=== PATIENT | female | born 1950 | race Caucasian/White ===

== ENCOUNTER 2017-03-06 15:06 | Inpatient (IN) | payer MEDICARE ==
[2017-03-06] MEDS ORDERED: Polyethylene Glycol 3350* 17 GM PACKET PO PRN (15:54)
[2017-03-06] MEDS ORDERED: Temazepam CAP* 15 MG PO PRN (15:57)
[2017-03-06] MEDS ORDERED: NS 0.9% 1000 ML* 1,000 ML IV SCH (16:00)
[2017-03-06] MEDS ORDERED: Zosyn per Pharmacy* NOTE FOLLOW UP SCH (16:00)
[2017-03-06] MEDS: Enoxaparin(*) 40 MG/0.4 ML SYR SUBCUT SCH (17:50)
[2017-03-06] MEDS: HYDROmorphone TAB* 2 MG PO PRN ×2 (18:52→23:25)
[2017-03-06] MEDS: Ondansetron INJ* 2 MG/ML VIAL IV PRN ×2 (19:10→23:26)
[2017-03-06] MEDS: ZOSYN 3.375 GM Q8H per EXTENDED INFUSION IVPB SCH ×2 (21:38)
[2017-03-07] MEDS: ZOSYN 3.375 GM Q8H per EXTENDED INFUSION IVPB SCH ×6 (04:57→21:06)
[2017-03-07] MEDS: Levothyroxine TAB* 88 MCG TAB PO SCH (05:00)
[2017-03-07 05:27] LABS: Hematocrit 22 % (35-47); Hemoglobin 7.8 g/dl (12.0-16.0); Mean Corpuscular HGB Conc 35 g/dl (31-36); Mean Corpuscular Hemoglobin 33 pg (27-31); Mean Corpuscular Volume 94 fL (80-97); Mean Platelet Volume 9 um3 (7.4-10.4); Red Blood Count 2.37 10^6/ul (4.0-5.4); Red Cell Distribution Width 18 % (10.5-15); White Blood Count 4.9 10^3/ul (3.5-10.8)
[2017-03-07 05:34] LABS: Albumin 2.6 g/dL (3.2-5.2); BUN/Creatinine Ratio 12.5 (8-20); Calcium 7.3 mg/dL (8.6-10.3); EGFR African American 165.9 (>60); Globulin 2.7 g/dL (2-4); Potassium 3.4 mmol/L (3.5-5.0); Total Bilirubin 0.4 mg/dL (0.2-1.0); Total Protein 5.3 g/dL (6.4-8.9)
[2017-03-07] MEDS: HYDROmorphone TAB* 2 MG PO PRN ×3 (06:46→21:06)
[2017-03-07] MEDS: Acetaminophen TAB* 325 MG PO PRN ×2 (07:44→16:00)
[2017-03-07 09:23] LABS: Magnesium 1.7 mg/dL (1.9-2.7)
--- NOTE | 2017-03-07 09:26 | PN ---
Progress Note - Progress Note Date of Service: 03/07/17 SOAP: Subjective: feels better today than yesterday. no BM in 4 days. no nausea. no vomiting. overall weak but "ok". still w hip pain, decent control with pain meds. resistant to walking with rolling walker as advised by PT ("I like my cane") Objective: Vital Signs Temp Pulse Resp BP Pulse Ox 100.9 F 115 18 102/56 93 03/07/17 07:28 03/07/17 07:28 03/07/17 08:00 03/07/17 07:28 03/07/17 07:28 sitting up in nad perr eomi op moist dec bs left base tachy, regular soft nt +bs 1+ LE edema bilaterally A+O x 3, grossly nonfocal but did not ambulate port clean Laboratory Results - last 24 hr 03/07/17 03/07/17 05:07 05:07 WBC 4.9 RBC 2.37 L Hgb 7.8 L Hct 22 L MCV 94 MCH 33 H MCHC 35 RDW 18 H Plt Count 150 MPV 9 Neut % (Auto) 75.9 Lymph % (Auto) 12.7 L Marion % (Auto) 10.4 H Eos % (Auto) 0.1 Baso % (Auto) 0.9 Absolute Neuts (auto) 3.7 Absolute Lymphs (auto) 0.6 L Absolute Monos (auto) 0.5 Absolute Eos (auto) 0 Absolute Basos (auto) 0 Absolute Nucleated RBC 0 Nucleated RBC % 0 Sodium 129 L Potassium 3.4 L Chloride 102 Carbon Dioxide 22 Anion Gap 5 BUN 6 Creatinine 0.48 L Est GFR ( Amer) 165.9 Est GFR (Non-Af Amer) 129.0 BUN/Creatinine Ratio 12.5 Glucose 104 H Calcium 7.3 L Total Bilirubin 0.40 AST 20 ALT 18 Alkaline Phosphatase 70 Total Protein 5.3 L Albumin 2.6 L Globulin 2.7 Albumin/Globulin Ratio 1.0 Acetaminophen (Tylenol Tab*) 650 mg PO Q6H PRN PRN Reason: PAIN OR TEMPERATURE Last Admin: 03/07/17 07:44 Dose: 650 mg Enoxaparin Sodium (Lovenox(*)) 40 mg SUBCUT Q24H [facility] Last Admin: 03/06/17 17:50 Dose: 40 mg Heparin Sodium (Porcine) (Heparin Flush Port (Ivad)) 5 ml FLUSH DAILY [facility] PRN Reason: Protocol Hydromorphone HCl (Dilaudid Tab*) 2 mg PO Q4H PRN PRN Reason: PAIN Last Admin: 03/07/17 06:46 Dose: 2 mg Hydromorphone HCl (Dilaudid Iv*) 0.5 mg IV SLOW PU Q4H PRN PRN Reason: PAIN Piperacillin Sod/Tazobactam (Sod 3.375 gm/ Sodium Chloride) 100 mls @ 25 mls/ hr IVPB Q8H [facility] Last Admin: 03/07/17 04:57 Dose: 25 mls/hr Potassium Chloride/Sodium Chloride (Ns 0.9% W/ 20 Meq Kcl 1000 Ml*) 1,000 mls @ 100 mls/hr IV PER RATE [facility] Levothyroxine Sodium (Synthroid Tab*) 88 mcg PO 0600 [facility] Last Admin: 03/07/17 05:00 Dose: 88 mcg Metoprolol Succinate (Toprol Xl Tab*) 50 mg PO DAILY [facility] Ondansetron HCl (Zofran Inj*) 4 mg IV Q4H PRN PRN Reason: NAUSEA/VOMITING Last Admin: 03/06/17 23:26 Dose: 4 mg Ondansetron HCl (Zofran Tab*) 4 mg PO Q4H PRN PRN Reason: NAUSEA Pharmacy Consult (Zosyn Per Pharmacy*) 1 note FOLLOW UP .ZOSYN PER PHARMACY [facility] Polyethylene Glycol/Electrolytes (Miralax*) 17 gm PO 0800,2100 PRN PRN Reason: CONSTIPATION Prochlorperazine (Compazine Tab*) 10 mg PO Q6H PRN PRN Reason: NAUSEA Temazepam (Restoril Cap*) 15 mg PO BEDTIME PRN PRN Reason: INSOMNIA Assessment: 66 yo F w metastatic squamous cell CA of lung on palliative Abraxane presenting with fevers, chills and weakness despite 48 hours of levaquin for a LLL PNA, now improving on zosyn. Plan: community acquired PNA: -cont zosyn -fu sputum cultures -check chest CT w contrast to rule out PE given tachycardia, hypoxia out of proportion to small infiltrate on xray hyponatremia: likely hypovolemic hyponatremia -cont hydration today hypokalemia: -check magnesium -replete IV today with fluids anemia: very likely related to abraxane given timing -will transfuse one unit today LE swelling: likely related to low protein levels -check dopplers if CT above negative constipation: -more aggressive bowel regimen DNR
[2017-03-07] MEDS: Metoprolol Succinate XL TAB* 50 MG PO SCH ×2 (09:36→13:22)
[2017-03-07] MEDS: NS 0.9% w/ 20 Meq KCL 1000 ML* 1,000 ML IV SCH (09:37)
[2017-03-07] MEDS ORDERED: Magnesium Sulfate 2 GM IV* 2 GM/50 ML BAG IVPB ONE (10:09)
[2017-03-07] MEDS: Ondansetron INJ* 2 MG/ML VIAL IV PRN (10:41)
[2017-03-07] MEDS ORDERED: Iohexol 350* (CONTRAST) 500 ML MDV IV ONE (11:39)
--- NOTE | 2017-03-07 11:53 | RAD ---
HISTORY: Shortness of breath, fever, hypoxia COMPARISONS: November 04, 2016, MRI of the thoracic spine dated January 04, 2017 TECHNIQUE: Multiple contiguous axial CT scans of the chest were obtained after the administration of nonionic intravenous contrast, timed to the pulmonary arterial phase of contrast enhancement.. Coronal and sagittal multiplanar reformations are also submitted for review. FINDINGS: NECK AND THYROID: The lower neck and thyroid are unremarkable. CHEST WALL: There is no lower cervical, axillary, or supraclavicular lymphadenopathy by size criteria. A right-sided chest port is noted. HEART AND PERICARDIUM: The heart is unremarkable. AORTA AND PULMONARY VASCULATURE: There is no pulmonary arterial filling defect to suggest pulmonary embolism. There is no linear filling defect within the aorta to suggest aortic dissection. MEDIASTINUM: Again noted is extensive mediastinal lymphadenopathy. There has been interval progression with enlarging lymph nodes in the right paratracheal space and prevascular space MEAGHAN: There is bilateral hilar lymphadenopathy, also progressed from the previous examination. AIRWAY AND ESOPHAGUS: The airway is unremarkable, without endobronchial filling defect. The esophagus is grossly normal. LUNG PARENCHYMA: There is extensive centrilobular emphysematous change. Again noted is a mass of left lower lobe. There has been interval development of consolidation of the left lower lobe. PLEURA: No pleural abnormalities are noted. UPPER ABDOMEN: The upper abdomen is unremarkable. BONES AND SOFT TISSUES: There are multiple lytic lesions involving the spine with a new compression deformity of T8. There is no appreciable epidural extension, though evaluation of the central canal is limited on CT. OTHER: None. IMPRESSION: 1. NO PULMONARY ARTERIAL FILLING DEFECT TO SUGGEST PULMONARY EMBOLISM. 2. AGAIN NOTED IS LEFT LOWER LOBE MASS. 3. THERE HAS BEEN INTERVAL DEVELOPMENT OF LEFT LOWER LOBE CONSOLIDATION. 4. THERE HAS BEEN INTERVAL PROGRESSION OF HILAR AND MEDIASTINAL LYMPHADENOPATHY AND INTERVAL PROGRESSION OF MULTIPLE LYTIC LESIONS OF THE THORACIC SPINE, CONSISTENT WITH PROGRESSION OF METASTATIC DISEASE
[2017-03-07] MEDS: Enoxaparin(*) 40 MG/0.4 ML SYR SUBCUT SCH (16:00)
[2017-03-07] MEDS: Polyethylene Glycol 3350* 17 GM PACKET PO SCH (21:05)
[2017-03-08] MEDS: ZOSYN 3.375 GM Q8H per EXTENDED INFUSION IVPB SCH ×2 (04:58)
[2017-03-08] MEDS: Levothyroxine TAB* 88 MCG TAB PO SCH (05:00)
[2017-03-08] MEDS: Ondansetron INJ* 2 MG/ML VIAL IV PRN ×2 (05:10→19:46)
[2017-03-08 06:07] LABS: Hematocrit 22 % (35-47); Hemoglobin 7.4 g/dl (12.0-16.0); Mean Corpuscular HGB Conc 35 g/dl (31-36); Mean Corpuscular Hemoglobin 33 pg (27-31); Mean Corpuscular Volume 94 fL (80-97); Mean Platelet Volume 9 um3 (7.4-10.4); Red Blood Count 2.29 10^6/ul (4.0-5.4); Red Cell Distribution Width 19 % (10.5-15); White Blood Count 4.1 10^3/ul (3.5-10.8)
[2017-03-08 06:18] LABS: BUN/Creatinine Ratio 14.3 (8-20); Calcium 7.1 mg/dL (8.6-10.3); EGFR African American 193.5 (>60); EGFR Non-African American 150.5 (>60); Potassium 3.5 mmol/L (3.5-5.0)
[2017-03-08] MEDS: HYDROmorphone* 1 MG/ML 1 ML CARPUJECT IV SLOW PU PRN ×2 (08:37→20:02)
[2017-03-08] MEDS: Polyethylene Glycol 3350* 17 GM PACKET PO SCH ×2 (08:37→22:31)
[2017-03-08] MEDS: Metoprolol Succinate XL TAB* 50 MG PO SCH ×2 (08:37→13:09)
[2017-03-08] MEDS: NS 0.9% w/ 20 Meq KCL 1000 ML* 1,000 ML IV SCH (10:43)
[2017-03-08] MEDS: HYDROmorphone TAB* 2 MG PO PRN (12:04)
[2017-03-08] MEDS: traMADol TAB* 50 MG PO SCH ×2 (13:09→18:10)
[2017-03-08] MEDS: Demeclocycline TAB* 150 MG PO SCH ×2 (13:09→20:07)
--- NOTE | 2017-03-08 13:24 | PN ---
Progress Note - Progress Note Date of Service: 03/08/17 SOAP: Subjective: [] Feeling a little better then admission but not that much better. No more fevers, breathing is ok, still with cough. Some abdominal bloating, not eating well. Thinks stomach upset from antibiotics. Pain has been increasing. Acetaminophen (Tylenol Tab*) 650 mg PO Q6H PRN PRN Reason: PAIN OR TEMPERATURE Last Admin: 03/07/17 16:00 Dose: 650 mg Demeclocycline HCl (Declomycin Tab*) 150 mg PO BID [facility] Enoxaparin Sodium (Lovenox(*)) 40 mg SUBCUT Q24H [facility] Last Admin: 03/07/17 16:00 Dose: 40 mg Heparin Sodium (Porcine) (Heparin Flush Port (Ivad)) 5 ml FLUSH DAILY [facility] PRN Reason: Protocol Last Admin: 03/08/17 08:45 Dose: Not Given Hydromorphone HCl (Dilaudid Tab*) 2 mg PO Q4H PRN PRN Reason: PAIN Last Admin: 03/08/17 12:04 Dose: 2 mg Hydromorphone HCl (Dilaudid Iv*) 0.5 mg IV SLOW PU Q4H PRN PRN Reason: PAIN Last Admin: 03/08/17 08:37 Dose: 0.5 mg Azithromycin 500 mg/ Sodium (Chloride) 250 mls @ 250 mls/hr IVPB Q24H [facility] Levofloxacin/Dextrose (Levaquin 500 Mg Ivpremix(*)) 500 mg in 100 mls @ 100 mls /hr IVPB Q24H [facility] Levothyroxine Sodium (Synthroid Tab*) 88 mcg PO 0600 [facility] Last Admin: 03/08/17 05:00 Dose: 88 mcg Metoprolol Succinate (Toprol Xl Tab*) 50 mg PO DAILY [facility] Last Admin: 03/07/17 13:22 Dose: 50 mg Ondansetron HCl (Zofran Inj*) 4 mg IV Q4H PRN PRN Reason: NAUSEA/VOMITING Last Admin: 03/08/17 05:10 Dose: 4 mg Ondansetron HCl (Zofran Tab*) 4 mg PO Q4H PRN PRN Reason: NAUSEA Polyethylene Glycol/Electrolytes (Miralax*) 17 gm PO 0800,2100 [facility] Last Admin: 03/08/17 08:37 Dose: 17 gm Prochlorperazine (Compazine Tab*) 10 mg PO Q6H PRN PRN Reason: NAUSEA Temazepam (Restoril Cap*) 15 mg PO BEDTIME PRN PRN Reason: INSOMNIA Tramadol HCl (Ultram*) 50 mg PO Q6HR [facility] Objective: [] Vital Signs Temp Pulse Resp BP Pulse Ox 98.8 F 108 24 126/52 87 03/08/17 07:42 03/08/17 07:42 03/08/17 12:04 03/08/17 07:42 03/08/17 07:42 HEENT - no oral lesions, no JVD Decreased sound bilaterally, left more then right. No wheezing. RRR S1S2 Abd - distended, non tender. No HSM CTA - Consistent with an atypical pneumonia. Improvements of lung lesion after radiation. The mediastinal nodes are mixed and may be reactive. The bone window shows diffuse progression of spine disease. Assessment: 66 yo F w metastatic squamous cell CA of lung on palliative Abraxane presenting with fevers, chills and weakness. Likely atypical pneumonia in combination with progressive symptoms from disease. Plan: 1. Pnemonia. Will stop Zosyn and start Levoquin and Azithromycin given GI symptoms and appearance on CT scan. 2. Hyponatremia. Suspect SIADH from lung disease. Start Demeclocycline 150 mg bid. 3. Anemia. Very likely related to abraxane given timing. Will transfuse one unit today. 4. LE swelling. Follow, likely related to w protein levels 5. Constipation. More aggressive bowel regimen, follow 6. DNR
[2017-03-08] MEDS: Azithromycin IV(*) 500 MG in NS 0.9% 250 ML* 250 ML IVPB SCH (13:39)
[2017-03-08] MEDS ORDERED: Levofloxacin 500 MG IVPREMIX(* 500 MG/100 ML BAG IVPB SCH (14:00)
[2017-03-08] MEDS: Acetaminophen TAB* 325 MG PO PRN (14:56)
[2017-03-08 14:59] LABS: Total Iron Binding Capacity 136 mcg/dL (250-450); Transferrin 97 mg/dL (203-362)
[2017-03-08 15:24] LABS: Vitamin B12 > 1450 pg/mL (180-914)
[2017-03-08] MEDS: Enoxaparin(*) 40 MG/0.4 ML SYR SUBCUT SCH (16:51)
[2017-03-08] MEDS: Levofloxacin 500 MG IVPREMIX(* 500 MG/100 ML BAG IVPB SCH (20:07)
[2017-03-08 20:14] LABS: Iron < 15 ug/dL (50-212)
[2017-03-09] MEDS: Ondansetron INJ* 2 MG/ML VIAL IV PRN ×2 (01:18→15:39)
[2017-03-09] MEDS: traMADol TAB* 50 MG PO SCH ×4 (01:18→19:09)
[2017-03-09 01:46] LABS: Ferritin > 1500.0 ng/mL (11-307)
[2017-03-09] MEDS: Acetaminophen TAB* 325 MG PO PRN (03:54)
[2017-03-09] MEDS: Levothyroxine TAB* 88 MCG TAB PO SCH (05:51)
[2017-03-09 06:52] LABS: Hematocrit 26 % (35-47); Mean Corpuscular HGB Conc 34 g/dl (31-36); Mean Corpuscular Hemoglobin 32 pg (27-31); Mean Corpuscular Volume 92 fL (80-97); Mean Platelet Volume 9 um3 (7.4-10.4); Red Blood Count 2.85 10^6/ul (4.0-5.4); Red Cell Distribution Width 17 % (10.5-15); White Blood Count 4.9 10^3/ul (3.5-10.8)
[2017-03-09 07:03] LABS: Albumin 2.5 g/dL (3.2-5.2); BUN/Creatinine Ratio 13.9 (8-20); Calcium 7.3 mg/dL (8.6-10.3); EGFR African American 231.2 (>60); EGFR Non-African American 179.8 (>60); Globulin 2.7 g/dL (2-4); Magnesium 1.8 mg/dL (1.9-2.7); Potassium 3.5 mmol/L (3.5-5.0); Total Bilirubin 0.7 mg/dL (0.2-1.0); Total Protein 5.2 g/dL (6.4-8.9)
[2017-03-09] MEDS: Polyethylene Glycol 3350* 17 GM PACKET PO SCH ×2 (07:28→20:49)
[2017-03-09] MEDS: Metoprolol Succinate XL TAB* 50 MG PO SCH (07:28)
[2017-03-09] MEDS: Demeclocycline TAB* 150 MG PO SCH ×3 (07:28→20:48)
--- NOTE | 2017-03-09 09:53 | PN ---
Progress Note - Progress Note Date of Service: 03/09/17 SOAP: Subjective: []Feel OK, a little better. Drenching sweats. Temp. documented just before 0400 101.4F, unfortunately was not contacted. Similarly O2 SAT down to 89%, has O2 via NC. Intermitted hypotension, moderate. HR still tachy with rate > 100. Cont.'d intermittent upset stomach that she relates to medications. Aware of progressive disease on CT, tells me Mr. Ponce told her another tx. option but she can't remember it and states, "What have I got to lose?" Medications: Acetaminophen (Tylenol Tab*) 650 mg PO Q6H PRN PRN Reason: PAIN OR TEMPERATURE Last Admin: 03/09/17 03:54 Dose: 650 mg Demeclocycline HCl (Declomycin Tab*) 150 mg PO BID [facility] Enoxaparin Sodium (Lovenox(*)) 40 mg SUBCUT Q24H [facility] Last Admin: 03/08/17 16:51 Dose: 40 mg Heparin Sodium (Porcine) (Heparin Flush Port (Ivad)) 5 ml FLUSH DAILY [facility] PRN Reason: Protocol Last Admin: 03/09/17 07:28 Dose: 5 ml Hydromorphone HCl (Dilaudid Tab*) 2 mg PO Q4H PRN PRN Reason: PAIN Last Admin: 03/08/17 12:04 Dose: 2 mg Hydromorphone HCl (Dilaudid Iv*) 0.5 mg IV SLOW PU Q4H PRN PRN Reason: PAIN Last Admin: 03/08/17 20:02 Dose: 0.5 mg Azithromycin 500 mg/ Sodium (Chloride) 250 mls @ 250 mls/hr IVPB Q24H [facility] Last Admin: 03/08/17 13:39 Dose: 250 mls/hr Levofloxacin/Dextrose (Levaquin 500 Mg Ivpremix(*)) 500 mg in 100 mls @ 100 mls /hr IVPB 2000 [facility] Last Admin: 03/08/17 20:07 Dose: 100 mls/hr Levothyroxine Sodium (Synthroid Tab*) 88 mcg PO 0600 [facility] Last Admin: 03/09/17 05:51 Dose: 88 mcg Metoprolol Succinate (Toprol Xl Tab*) 50 mg PO DAILY [facility] Last Admin: 03/09/17 07:28 Dose: Not Given Ondansetron HCl (Zofran Inj*) 4 mg IV Q4H PRN PRN Reason: NAUSEA/VOMITING Last Admin: 03/09/17 01:18 Dose: 4 mg Ondansetron HCl (Zofran Tab*) 4 mg PO Q4H PRN PRN Reason: NAUSEA Polyethylene Glycol/Electrolytes (Miralax*) 17 gm PO 0800,2100 [facility] Last Admin: 03/09/17 07:28 Dose: Not Given Prochlorperazine (Compazine Tab*) 10 mg PO Q6H PRN PRN Reason: NAUSEA Temazepam (Restoril Cap*) 15 mg PO BEDTIME PRN PRN Reason: INSOMNIA Tramadol HCl (Ultram*) 50 mg PO Q6HR [facility] Last Admin: 03/09/17 06:07 Dose: Not Given Objective: [] Vital Signs Temp Pulse Resp BP Pulse Ox 98.5 F 96 20 99/47 92 03/09/17 07:45 03/09/17 07:45 03/09/17 08:00 03/09/17 07:45 03/09/17 07:45 A&Ox3, EOMI, MONSIVAIS, neuro grossly non-focal HRR, S1S2 LS scatter rhonchi +BS, abd. soft and non-tender Edematous Laboratory Results - last 24 hr 03/06/17 03/08/17 03/08/17 13:41 04:57 13:25 WBC RBC Hgb Hct MCV MCH MCHC RDW Plt Count MPV Neut % (Auto) Lymph % (Auto) Millard % (Auto) Eos % (Auto) Baso % (Auto) Absolute Neuts (auto) Absolute Lymphs (auto) Absolute Monos (auto) Absolute Eos (auto) Absolute Basos (auto) Absolute Nucleated RBC Nucleated RBC % Sodium Potassium Chloride Carbon Dioxide Anion Gap BUN Creatinine Est GFR ( Amer) Est GFR (Non-Af Amer) BUN/Creatinine Ratio Glucose Osmolality 262 L Calcium Magnesium Iron < 15 L TIBC 136 L % Saturation 11 L Unsat Iron Binding 121.39796 Ferritin > 1500.0 H Total Bilirubin AST ALT Alkaline Phosphatase Total Protein Albumin Globulin Albumin/Globulin Ratio Vitamin B12 > 1450 H Blood Type O Positive Antibody Screen Negative Crossmatch See Detail 03/09/17 03/09/17 06:06 06:06 WBC 4.9 RBC 2.85 L Hgb 9.0 L Hct 26 L MCV 92 MCH 32 H MCHC 34 RDW 17 H Plt Count 167 MPV 9 Neut % (Auto) 87.3 H Lymph % (Auto) 7.6 L Millard % (Auto) 4.7 Eos % (Auto) 0.1 Baso % (Auto) 0.3 Absolute Neuts (auto) 4.3 Absolute Lymphs (auto) 0.4 L Absolute Monos (auto) 0.2 Absolute Eos (auto) 0 Absolute Basos (auto) 0 Absolute Nucleated RBC 0.01 Nucleated RBC % 0.3 Sodium 125 L Potassium 3.5 Chloride 95 L Carbon Dioxide 25 Anion Gap 5 BUN 5 L Creatinine 0.36 L Est GFR ( Amer) 231.2 Est GFR (Non-Af Amer) 179.8 BUN/Creatinine Ratio 13.9 Glucose 106 H Osmolality Calcium 7.3 L Magnesium 1.8 L Iron TIBC % Saturation Unsat Iron Binding Ferritin Total Bilirubin 0.70 AST 23 ALT 17 Alkaline Phosphatase 81 Total Protein 5.2 L Albumin 2.5 L Globulin 2.7 Albumin/Globulin Ratio 0.9 L Vitamin B12 Blood Type Antibody Screen Crossmatch Assessment: []66 yo female with metastatic NSCLC admitted with SIRS and pneumonia with slow improvement and unfortunately recurrent fever. Plan: []1. Pneumonia: patchy infiltrates and question of atypical PNA therefore switched from Zosyn (started on admission) to Levaquin & Azithromycin, unfortunately has had recurrent fevers since switch and although she has progressive disease I think this represents a true fever (not tumor fevers) and would like Dr. Meeks to consult regarding options for abx. now and on d/c 2. 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 3 days for full affect, she has some fluid retention and I will hold off on IV fluids and sodium tabs for now 3. Hypoalbuminemia: associated edema and will check pre-albumin 4. NSCLC: plan of care per Dr. Ponce however I have requested our oncology SW see her and introduce role and palliative team
[2017-03-09 12:32] LABS: Prealbumin 5 mg/dL (18-38)
[2017-03-09] MEDS: Azithromycin IV(*) 500 MG in NS 0.9% 250 ML* 250 ML IVPB SCH (12:37)
[2017-03-09] MEDS: Enoxaparin(*) 40 MG/0.4 ML SYR SUBCUT SCH (15:44)
[2017-03-09] MEDS: HYDROmorphone* 1 MG/ML 1 ML CARPUJECT IV SLOW PU PRN ×2 (15:56→20:10)
[2017-03-09] MEDS: Levofloxacin 500 MG IVPREMIX(* 500 MG/100 ML BAG IVPB SCH (20:42)
[2017-03-09] MEDS: Ondansetron TAB* 4 MG PO PRN (20:45)
--- NOTE | 2017-03-09 22:14 | CONS ---
CONSULTATION REPORT: DATE OF CONSULT: 03/09/17 REQUESTING PHYSICIAN: Jemma Carballo NP CONSULTING SERVICE: Infectious Disease. REASON FOR CONSULTATION: Fever. IMPRESSION: 1. Few days of fever, cough, left lower lobe infiltrate, taken together most likely a community-acquired pneumonia. She had originally not improved on Levaquin, then she got better while on Zosyn and then had a fever last night after being switched back to Levaquin, which she continues on at this point. No fever this morning and she has no white count. Her occasional productive cough continues. She has no chest pain or hemoptysis. I am concerned for a post-obstructive process. No evidence of an aspiration type pneumonia. 2. Squamous cell lung cancer, ongoing chemotherapy. 3. ALLERGY to AUGMENTIN, which was mostly an intolerance of the GI nature. RECOMMENDATION: Continue on her current antibiotic regimen, follow her symptoms for another 24 hours, see if she defervesces and if so, then we can use either cephalosporin or fluoroquinolone for discharge. HISTORY OF PRESENT ILLNESS: This is a 66-year-old woman with squamous cell cancer, recent chemotherapy, admitted with fever and cough. She was treated as an outpatient with oral Levaquin without much improvement and because of progression of her symptoms, she came to the hospital. She had a CT scan that showed the infiltrate as described above. She had no white count. She had blood cultures sent on , which were negative. She had Legionella and pneumococcal urinary antigens, which were negative. Her energy and appetite are a little bit better since being in the hospital. Her cough is decreased, breathing overall has still been fine. She has had intermittent fever including last night. PAST MEDICAL HISTORY: 1. Squamous cell cancer, on chemotherapy. 2. Right chest subclavian port. 3. Resection of a right frontotemporal metastatic squamous cell cancer, September 2015. MEDICATIONS: 1. Azithromycin 500 mg daily. 2. Levaquin 500 mg daily. 3. Tylenol. 4. Demeclocycline. 5. Enoxaparin. 6. Dilaudid. 7. Metoprolol. 8. Polyethylene glycol. 9. Temazepam p.r.n. 10. Tramadol. ALLERGIES: No known drug allergies. FAMILY HISTORY: Father with lymphoma. Mother with leukemia. SOCIAL HISTORY: No travel or sick contacts. REVIEW OF SYSTEMS: All negative to full review of systems except as noted above. PHYSICAL EXAM: Vital Signs: Temperature is 37, heart rate 90, respiratory rate 20, blood pressure 100/47, O2 sat 92% on 3 L. In general, she is awake, not in distress. Neurologic: She is oriented x3, follows all commands. HEENT : There is no conjunctival hemorrhage. Oropharynx without lesions. Neck is supple without nuchal rigidity. Lymph Nodes: There is no cervical, supraclavicular, inguinal, axillary, or epitrochlear lymphadenopathy. Heart has regular rate and rhythm without murmurs, rubs, or gallops. Lungs have decreased breath sounds at bases bilaterally without wheezes, rales, or rhonchi. Abdomen: Soft, nontender, nondistended. There are bowel sounds present. Skin: There is no rash or splinter hemorrhages. Musculoskeletal: There is no spine tenderness to palpation. There is no joint synovitis. DIAGNOSTIC STUDIES/LAB DATA: White blood cell count 4.9, hemoglobin 9, platelets 167,000. Creatinine 0.3. ALT 70. Please see impressions and recommendations outlined above. Thank you for asking me to see Ms. Tolbert in consultation. [id number]/[facility] #: [id number] GIOVANNA
[2017-03-10] MEDS: HYDROmorphone* 1 MG/ML 1 ML CARPUJECT IV SLOW PU PRN ×3 (00:26→20:33)
[2017-03-10] MEDS: traMADol TAB* 50 MG PO SCH ×4 (00:27→17:07)
[2017-03-10] MEDS: Ondansetron TAB* 4 MG PO PRN ×2 (00:35→05:41)
[2017-03-10] MEDS: HYDROmorphone TAB* 2 MG PO PRN (05:24)
[2017-03-10] MEDS: Levothyroxine TAB* 88 MCG TAB PO SCH (05:25)
[2017-03-10 06:04] LABS: Hematocrit 26 % (35-47); Hemoglobin 8.7 g/dl (12.0-16.0); Mean Corpuscular HGB Conc 34 g/dl (31-36); Mean Corpuscular Hemoglobin 32 pg (27-31); Mean Corpuscular Volume 92 fL (80-97); Mean Platelet Volume 9 um3 (7.4-10.4); Red Blood Count 2.76 10^6/ul (4.0-5.4); Red Cell Distribution Width 17 % (10.5-15); White Blood Count 4.4 10^3/ul (3.5-10.8)
[2017-03-10 06:14] LABS: BUN/Creatinine Ratio 17.1 (8-20); Calcium 7.2 mg/dL (8.6-10.3); EGFR African American 238.9 (>60); EGFR Non-African American 185.7 (>60); Potassium 3.6 mmol/L (3.5-5.0)
[2017-03-10] MEDS: Ondansetron INJ* 2 MG/ML VIAL IV PRN (07:39)
[2017-03-10] MEDS: Polyethylene Glycol 3350* 17 GM PACKET PO SCH (07:45)
[2017-03-10] MEDS: Demeclocycline TAB* 150 MG PO SCH ×3 (08:47→20:32)
[2017-03-10] MEDS: Prochlorperazine TAB* 10 MG PO PRN ×3 (08:47→20:32)
--- NOTE | 2017-03-10 10:16 | PN ---
Progress Note - Progress Note Date of Service: 03/10/17 SOAP: Subjective: []No fever but not feeling much better. Eating some but still upset stomach. Breathing is fine. Did walk around some yesterday. Wants to go home but not feeling well. Has had diarrhea and had to start wearing depends. Acetaminophen (Tylenol Tab*) 650 mg PO Q6H PRN PRN Reason: PAIN OR TEMPERATURE Last Admin: 03/09/17 03:54 Dose: 650 mg Demeclocycline HCl (Declomycin Tab*) 150 mg PO TID [facility] Last Admin: 03/10/17 08:47 Dose: 150 mg Enoxaparin Sodium (Lovenox(*)) 40 mg SUBCUT Q24H [facility] Last Admin: 03/09/17 15:44 Dose: 40 mg Heparin Sodium (Porcine) (Heparin Flush Port (Ivad)) 5 ml FLUSH DAILY [facility] PRN Reason: Protocol Last Admin: 03/10/17 08:46 Dose: Not Given Hydromorphone HCl (Dilaudid Tab*) 2 mg PO Q4H PRN PRN Reason: PAIN Last Admin: 03/10/17 05:24 Dose: 2 mg Hydromorphone HCl (Dilaudid Iv*) 0.5 mg IV SLOW PU Q4H PRN PRN Reason: PAIN Last Admin: 03/10/17 00:26 Dose: 0.5 mg Levofloxacin/Dextrose (Levaquin 500 Mg Ivpremix(*)) 500 mg in 100 mls @ 100 mls /hr IVPB 2000 [facility] Last Admin: 03/09/17 20:42 Dose: 100 mls/hr Levothyroxine Sodium (Synthroid Tab*) 88 mcg PO 0600 [facility] Last Admin: 03/10/17 05:25 Dose: 88 mcg Metoprolol Succinate (Toprol Xl Tab*) 50 mg PO 1200 [facility] Ondansetron HCl (Zofran Inj*) 4 mg IV Q4H PRN PRN Reason: NAUSEA/VOMITING Last Admin: 03/10/17 07:39 Dose: 4 mg Ondansetron HCl (Zofran Tab*) 4 mg PO Q4H PRN PRN Reason: NAUSEA Last Admin: 03/10/17 05:41 Dose: 4 mg Prochlorperazine (Compazine Tab*) 10 mg PO Q6H PRN PRN Reason: NAUSEA Last Admin: 03/10/17 08:47 Dose: 10 mg Temazepam (Restoril Cap*) 15 mg PO BEDTIME PRN PRN Reason: INSOMNIA Tramadol HCl (Ultram*) 50 mg PO Q6HR [facility] Last Admin: 03/10/17 05:23 Dose: 50 mg Objective: [] Vital Signs Temp Pulse Resp BP Pulse Ox 98.3 F 104 16 125/65 94 03/10/17 08:02 03/10/17 08:02 03/10/17 08:02 03/10/17 08:02 03/10/17 08:02 HEENT: Mucosa moist, pale, no thrush Decreased BS but no wheezing. RRR S1S2 Abd distended, non tender, good BS EXT edema all 4 Assessment: []66 year old with fatigue, fevers, weakness and found to have pneumonia and progressive cancer. Hyponatremia likley SIADH from her cancer as well as acute pulmonary process. Symptoms from both. Discussed that it is difficult to say if her symptoms are from pneumonia or cancer. Fevers better over past 24 hrs, she has continued hyponatremia. Plan: []1. Pneumonia. Will continue Levaquin. 2. Hyponatremia. Increase Demeclocycline to 300 bid. Free water restriction. Check UA. 3. GI. Hold lactulose and encouraged po's. 4. Will hold on decision about hospice at this time, will see if she imposes from pneumonia. DNR/DNI 5. Encouraged to increase walking.
[2017-03-10] MEDS: Metoprolol Succinate XL TAB* 50 MG PO SCH (12:03)
[2017-03-10] MEDS: Acetaminophen TAB* 325 MG PO PRN (14:45)
[2017-03-10] MEDS: Enoxaparin(*) 40 MG/0.4 ML SYR SUBCUT SCH (15:17)
[2017-03-10] MEDS: Levofloxacin 500 MG IVPREMIX(* 500 MG/100 ML BAG IVPB SCH (20:33)
[2017-03-11] MEDS: traMADol TAB* 50 MG PO SCH ×5 (01:14→23:58)
[2017-03-11] MEDS: Levothyroxine TAB* 88 MCG TAB PO SCH (05:16)
[2017-03-11 05:52] LABS: Hematocrit 27 % (35-47); Hemoglobin 9.3 g/dl (12.0-16.0); Mean Corpuscular HGB Conc 35 g/dl (31-36); Mean Corpuscular Hemoglobin 32 pg (27-31); Mean Corpuscular Volume 92 fL (80-97); Mean Platelet Volume 9 um3 (7.4-10.4); Red Blood Count 2.93 10^6/ul (4.0-5.4); Red Cell Distribution Width 17 % (10.5-15); White Blood Count 5.5 10^3/ul (3.5-10.8)
[2017-03-11 06:48] LABS: Albumin 2.4 g/dL (3.2-5.2); BUN/Creatinine Ratio 21.9 (8-20); Calcium 7.3 mg/dL (8.6-10.3); EGFR African American 264.9 (>60); Potassium 3.6 mmol/L (3.5-5.0); Total Bilirubin 0.5 mg/dL (0.2-1.0); Total Protein 5.4 g/dL (6.4-8.9)
[2017-03-11] MEDS: Demeclocycline TAB* 150 MG PO SCH ×2 (07:24→22:26)
[2017-03-11] MEDS: HYDROmorphone* 1 MG/ML 1 ML CARPUJECT IV SLOW PU PRN ×2 (08:37→19:24)
[2017-03-11] MEDS: Prochlorperazine TAB* 10 MG PO PRN ×2 (08:37→19:25)
[2017-03-11] MEDS: Metoprolol Succinate XL TAB* 50 MG PO SCH (11:08)
[2017-03-11] MEDS: HYDROmorphone TAB* 2 MG PO PRN ×2 (13:36→22:44)
[2017-03-11] MEDS ORDERED: Saline NASAL SPRAY 0.65%* BTL BOTH NARES PRN (13:59)
[2017-03-11] MEDS: Enoxaparin(*) 40 MG/0.4 ML SYR SUBCUT SCH (16:35)
[2017-03-11] MEDS: Levofloxacin 500 MG IVPREMIX(* 500 MG/100 ML BAG IVPB SCH (20:14)
[2017-03-12 00:28] LABS: Urine Bilirubin Negative (Negative); Urine Glucose Negative (Negative); Urine Nitrite Negative (Negative)
[2017-03-12] MEDS: Levothyroxine TAB* 88 MCG TAB PO SCH (05:24)
[2017-03-12] MEDS: HYDROmorphone* 1 MG/ML 1 ML CARPUJECT IV SLOW PU PRN (05:24)
[2017-03-12] MEDS: Prochlorperazine TAB* 10 MG PO PRN (05:24)
[2017-03-12] MEDS: traMADol TAB* 50 MG PO SCH ×2 (05:24→12:21)
[2017-03-12] MEDS: Demeclocycline TAB* 150 MG PO SCH (07:35)
[2017-03-12 08:40] VITALS: BP 118/61
[2017-03-12] MEDS: Metoprolol Succinate XL TAB* 50 MG PO SCH (12:22)
== END 2017-03-12 13:25 | disposition home or self-care (01) | DRG 194 ==
LOC: MEDTELE 16:18
PROVIDERS: ADMIT Internal Medicine Hematology & Oncology; ATTEND Internal Medicine Hematology & Oncology
PROC: 30233N1 Transfusion of Nonautologous Red Blood Cells into Peripheral Vein, Percutaneous Approach (ICD-10-PCS; principal; 2017-03-08)
DX: J18.9 Pneumonia, unspecified organism (principal); E22.2 Syndrome of inappropriate secretion of antidiuretic hormone; E46 Unspecified protein-calorie malnutrition; C34.90 Malignant neoplasm of unspecified part of unspecified bronchus or lung; E88.09 Other disorders of plasma-protein metabolism, not elsewhere classified; D64.9 Anemia, unspecified; Z68.1 Body mass index [BMI] 19.9 or less, adult; E87.6 Hypokalemia; K59.00 Constipation, unspecified; Z66 Do not resuscitate; E03.9 Hypothyroidism, unspecified; M19.90 Unspecified osteoarthritis, unspecified site; F17.210 Nicotine dependence, cigarettes, uncomplicated; Z79.899 Other long term (current) drug therapy; Z79.1 Long term (current) use of non-steroidal anti-inflammatories (NSAID); Z88.8 Allergy status to other drugs, medicaments and biological substances; Z88.5 Allergy status to narcotic agent; Z88.1 Allergy status to other antibiotic agents; Z80.7 Family history of other malignant neoplasms of lymphoid, hematopoietic and related tissues; Z80.6 Family history of leukemia
CPT/HCPCS: 0521F; 1036F; 1125F; 36415; 36591; 71020; 71275; 80048; 80053; 81003; 82607; 82728; 83540; 83550; 83605; 83735; 83930; 84134; 84145; 85025; 85652; 86140; 86850; 86900; 86901; 86922; 87040; 87899; 93005; 96360; 99213; 99214; 99215; 99222; 99232; 99233; 99238; A9270-GY; G0463; G8427; J0456; J1170; J1642; J1650; J1956; J2405; J2543; J3475; P9040; Q0164; Q9967